=== PATIENT | female | born 1985 | race Caucasian/White ===

== ENCOUNTER 2018-12-18 23:58 | Emergency (ER) | payer MEDICAID ==
[2018-12-19 00:29] LABS: BILIRUBIN,URINE NEGATIVE (NEGATIVE); GLUCOSE, URINE NEGATIVE (NEGATIVE); KETONES,URINE NEGATIVE (NEGATIVE); LEUKOCYTE ESTERASE,URINE MODERATE (NEGATIVE); NITRITE,URINE NEGATIVE (NEGATIVE); PROTEIN,URINE 30 mg/dL (NEGATIVE); URINE SPECIFIC GRAVITY 1.018; UROBILINOGEN,URINE NEGATIVE mg/dL (<2.0)
[2018-12-19 00:30] LABS: APPEARANCE,URINE TURBID; COLOR,URINE BROWN
[2018-12-19] MEDS ORDERED: NORMAL SALINE 500 ML IV ONE (04:08)
[2018-12-19] MEDS ORDERED: CEFTRIAXONE 1 GM/D5W RTU 1 GM/50 ML RTUPB IV ONE (04:08)
--- NOTE | 2018-12-19 04:12 | ER Document Report ---
ED General - General Chief Complaint: Urinary Problem Stated Complaint: URINARY PROBLEM Time Seen by Provider: 12/19/18 03:50 Notes: Patient is a pleasant 33-year-old female presents with complaint of dysuria. 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 She says she does get urinary tract infections sometimes. She says that she always has an intermittent dull ache in her left kidney which is not changed. She denies any pain right now. She denies any vomiting. No fevers. No systemic symptoms. She says it tinoco when she urinates and that is mainly why she came in. No other complaints at this time. - Related Data Allergies/Adverse Reactions: ciprofloxacin Allergy (Verified 12/18/18 23:59) Past Medical History - Social History Smoking Status: Unknown if Ever Smoked Frequency of alcohol use: None Drug Abuse: None Family History: Reviewed & Not Pertinent Review of Systems - Review of Systems Notes: My Normal Review Basic REVIEW OF SYSTEMS: CONSTITUTIONAL : Denies fever, chills, or sweats. Denies recent illness. GASTROINTESTINAL: Denies abdominal pain. Denies nausea, vomiting, or diarrhea. GENITOURINARY: Dysurea FEMALE GENITOURINARY: Denies vaginal bleeding, abnormal or irregular periods. MUSCULOSKELETAL: Denies neck or back pain or joint pain or swelling. SKIN: Denies rash or skin lesions. NEUROLOGICAL: Denies altered mental status or loss of consciousness. ALL OTHER SYSTEMS REVIEWED AND NEGATIVE. Physical Exam - Vital signs Vitals: Temp Pulse Resp BP Pulse Ox 98.1 F 100 16 160/97 H 100 12/19/18 00:55 12/19/18 00:55 12/19/18 00:55 12/19/18 00:55 12/19/18 00:55 - Notes Notes: General Appearance: Well nourished, alert, cooperative, no acute distress, no obvious discomfort. Well-appearing. Vitals: reviewed, See vital signs table. Eyes: PERRL, EOMI, Conjuctiva clear Abdomen: Normal BS, soft, No rigidity, No abdominal tenderness, No guarding, no rebound, no abdominal masses, no organomegaly Back: Negative Rupert sign bilaterally. Extremities: strength 5/5 in all extremities, good pulses in all extremities, no swelling or tenderness in the extremities, no edema. Skin: warm, dry, appropriate color, no rash Neuro: speech clear, oriented x 3, normal affect, responds appropriately to questions. Course - Re-evaluation Re-evalutation: 12/19/18 05:21 She continues to look very well. I do not suspect pyelonephritis that she does not have any systemic symptoms. She does not have any tenderness to palpation over the kidney area. She does not have significant back pain. She has not any vomiting. And she looks very well. Vital signs are normal for low bit of hypertension. I feel that she is safe to be discharged home. I talked her length about the importance of returning to ER immediately if she has any worsening of her symptoms, fevers, vomiting, or back pain. Dose is very important in her case suspicious that she only has one kidney. Patient is very understanding of this and agrees with plan will be discharged home. Dictation of this chart was performed using voice recognition software; therefore, there may be some unintended grammatical errors. - Vital Signs Vital signs: Temp Pulse Resp BP Pulse Ox 98.1 F 100 16 160/97 H 100 12/19/18 00:55 12/19/18 00:55 12/19/18 00:55 12/19/18 00:55 12/19/18 00:55 - Laboratory Result Diagrams: 12/19/18 04:17 Laboratory results interpreted by me: 12/19/18 12/19/18 00:02 04:17 Glucose 158 H Urine Protein 30 H Urine Blood LARGE H Ur Leukocyte Esterase MODERATE H Discharge - Discharge Clinical Impression: UTI (urinary tract infection) Qualifiers: Urinary tract infection type: site unspecified Hematuria presence: with hematuria Qualified Code(s): N39.0 - Urinary tract infection, site not specified; R31.9 - Hematuria, unspecified Condition: Good Disposition: HOME, SELF-CARE Additional Instructions: Your symptoms and urinalysis indicate that you do have a urinary tract infection. I do not suspect a kidney infection at this time in that you do not have constant ongoing pain in your back, you do not have a fever, your vital signs are normal. I have given you a dose of antibiotic through the IV. Your next dose of antibiotics are not due till this afternoon. I have prescribed you an antibiotic called Kekishore. I will send your urine for culture so if it grows out anything that is resistant to the antibiotic we will call and notify you immediately. Please have a very low threshold to return to the ER immediately if you have any fevers, recurrent pain over your kidney area, vomiting, or if you feel that you are worsening in any way. Please follow-up with doctor in 2-3 days for reevaluation to make sure that you are improving. Again, have a very low threshold to return to the emergency room if you have any worsening as you only have one kidney and therefore is very important that we protect this kidney. Prescriptions: Cephalexin Monohydrate [Keflex 500 mg Capsule] 500 mg PO TID 5 Days #15 capsule
[2018-12-19 04:48] LABS: ANION GAP 8 (5-19); BLOOD UREA NITROGEN 14 mg/dL (7-20); CALCIUM 9.8 mg/dL (8.4-10.2); CARBON DIOXIDE 28 mmol/L (22-30); CHLORIDE 105 mmol/L (98-107); GLUCOSE 158 mg/dL (75-110); POTASSIUM 4.2 mmol/L (3.6-5.0); SODIUM 141.4 mmol/L (137-145)
[2018-12-19 05:32] VITALS: BP 135/79
== END 2018-12-19 05:34 | disposition home or self-care (01) ==
LOC: ER 23:58
DX: N39.0 Urinary tract infection, site not specified (principal); N31.9 Neuromuscular dysfunction of bladder, unspecified; Z88.3 Allergy status to other anti-infective agents
CPT/HCPCS: 99283; 96365; 36415; 87086; 87088; 80048; 81001; 87186; J7040; J0696